=== PATIENT | female | born 1955 | race Caucasian/White ===

== ENCOUNTER 2024-05-18 11:38 | Emergency (ER) | payer MEDICARE, OTHER, SELFPAY ==
--- NOTE | 2024-05-18 11:48 | ED_ITS ---
HPI - General Adult General Chief complaint: Extremity Injury, Upper Stated complaint: Right Hand Finger Irritation Time Seen by Provider: 05/18/24 11:53 Source: patient, RN notes reviewed and old records reviewed Mode of arrival: ambulatory Limitations: no limitations History of Present Illness HPI narrative: 68-year-old female presents to the [facility] with inflammation and redness to the base of the nail right hand 3rd finger. Has a history of paronychia is. Does have fluctuance. Related Data Home Medications Medication Instructions Recorded Confirmed albuterol sulfate 90 mcg/actuation 1 inh inhalation DIRECTED 05/18/24 05/18/24 aerosol inhaler alendronate 70 mg tablet 70 mg PO DIRECTED 05/18/24 05/18/24 azelastine 137 mcg (0.1 %) nasal 137 mcg intranasal DIRECTED 05/18/24 05/18/24 spray cetirizine 10 mg tablet 10 mg DIRECTED 05/18/24 05/18/24 famotidine 40 mg tablet 40 mg DIRECTED 05/18/24 05/18/24 fluticasone propionate 50 1 spray intranasal DIRECTED 05/18/24 05/18/24 mcg/actuation nasal spray,suspension leflunomide 20 mg tablet 20 mg DIRECTED 05/18/24 05/18/24 montelukast 10 mg tablet 10 mg DIRECTED 05/18/24 05/18/24 olmesartan 40 mg tablet 40 mg DIRECTED 05/18/24 05/18/24 pantoprazole 40 mg tablet,delayed 40 mg PO DIRECTED 05/18/24 05/18/24 release roflumilast 500 mcg tablet 500 mcg DIRECTED 05/18/24 05/18/24 tramadol 50 mg tablet 50 mg DIRECTED 05/18/24 05/18/24 upadacitinib 15 mg tablet,extended 15 mg PO DAILY 05/18/24 05/18/24 release 24 hr (Rinvoq) Allergies Allergy/AdvReac Type Severity Reaction Status Date / Time No Known Allergies Allergy Verified 05/18/24 11:58 Review of Systems Review of Systems: All systems reviewed & are unremarkable except as noted in HPI and below Constitutional: Constitutional: Reports no additional constitutional complaints ENT: Reports system reviewed and no additional complaints, except as doc umented Cardiovascular: Cardiovascular: Reports no additional cardiovascular complaints, Denies chest pain and Denies dyspnea Respiratory: Respiratory: Reports no additional respiratory complaints, Denies chest congestion, Denies cough and Denies dyspnea Gastrointestinal: Gastrointestinal: Reports no additional gastrointestinal complaints, Denies abdominal pain, Denies nausea and Denies vomiting Musculoskeletal: Musculoskeletal: Reports no additional musculoskeletal complaints Integumentary/Breasts: Skin/Breast: Reports system reviewed and no additional complaints, except as docu PMFSH Comments At the time of my signature, I reviewed and agree with the nursing past medical, surgical, social, and family history. There is no relevant family history pertinent to the patient complaint. Exam Const: General: cooperative, healthy appearing, comfortable, no acute distress, well developed, alert and well nourished Nutritional Appearance: well nourished Orientation/consciousness: patient oriented x3 Limitations: no limitations HENMT: Head: normal to inspection Ears: hearing grossly normal bilaterally and external ears normal Face/Nose/Sinus: Normal external nose present, normal facial exam and face symmetric Face and sinus: normal facial exam and face symmetric Eyes: General: appearance normal, both eyes and all related structures Alignment and Position: alignment normal Periorbital: periorbital findings normal Neck: Neck: normal visual inspection, full ROM, no lymphadenopathy and no meningeal signs Chest: Chest palpation & inspection: normal inspection of the chest Resp: Effort & Inspection: normal respiratory effort and able to speak in complete sentences Auscultation: clear to auscultation bilaterally, no crackles, no rales, no rhonchi and no wheezes Cardio: Rate: regular rate Skin: General skin exam: normal color and no rashes or lesions noted Lesions: no lesions Rashes: no rashes Wounds: no wounds Neuro: General: patient oriented x3, gait normal, tone normal, moves all extr emities and no meningeal signs Cognition (Neuro): normal cognition Speech: normal speech Gait exam (Neuro): Normal gait present Extrem: General: normal to inspection, full ROM, capillary refill normal and normal gait Psych: Appearance: grossly normal and well kempt Mental Status: mental status grossly normal Speech and movement: Normal speech and movement present and Clear speech present Affect: normal affect Attitude: cooperative Course Course Level of Care: Express Care Visit Vital Signs Vital signs: Vital Signs Temperature 98.4 F 05/18/24 11:51 Pulse Rate 69 05/18/24 11:51 Respiratory Rate 16 05/18/24 11:51 Blood Pressure 143/59 H 05/18/24 11:51 Pulse Oximetry 100 05/18/24 11:51 Oxygen Delivery Room Air 05/18/24 11:51 Temperature 98.4 F 05/18/24 11:51 Pulse Rate 69 05/18/24 11:51 Respiratory Rate 16 05/18/24 11:51 Blood Pressure 143/59 H 05/18/24 11:51 Pulse Oximetry 100 05/18/24 11:51 Oxygen Delivery Room Air 05/18/24 11:51 Reviewed Procedures Abscess I/D hand: Date of Incision: 05/18/24 Time of Incision: 12:27 Side (if applicable): right (Third finger) Local Anesthetic: lidocaine 1% Amount of anesthesia used (mL): 2 Technique: incised with #11 blade Amount of fluid expressed (mL): 1 Irrigation: No Medical Decision Making MDM Narrative Medical decision making narrative: Patient sitting comfortably in exam room. Nontoxic, vitals stable. Patient in no acute distress Patient presents for Discharge instructions reviewed with patient, as well as provided in writing per nursing staff. The instructions also include specific and strict return/GO TO THE ER as well as f/u information. All questions have been answered, and the patient deny any further questions with discharge and discharge plan. Some parts of this dictation were generated by voice recognition software and may contain typographical and/or grammatical inaccuracies. Medical Records Medical records reviewed: Yes I reviewed the external patient's medical records. Vital Signs Vital Signs: Vital Signs Temperature 98.4 F 05/18/24 11:51 Pulse Rate 69 05/18/24 11:51 Respiratory Rate 16 05/18/24 11:51 Blood Pressure 143/59 H 05/18/24 11:51 Pulse Oximetry 100 05/18/24 11:51 Oxygen Delivery Room Air 05/18/24 11:51 Temperature 98.4 F 05/18/24 11:51 Pulse Rate 69 05/18/24 11:51 Respiratory Rate 16 05/18/24 11:51 Blood Pressure 143/59 H 05/18/24 11:51 Pulse Oximetry 100 05/18/24 11:51 Oxygen Delivery Room Air 05/18/24 11:51 Reviewed Lab Data Lab results reviewed: Yes I reviewed the patient's lab results. Labs: Reviewed Critical Care Time Critical Care Time Critical Care Time: No Discharge Plan Discharge Clinical Impression: Paronychia Patient Disposition: Home, Self-Care Condition: Stable Instructions: Antibiotic Form, Paronychia (ED) Additional Instructions: Soak your finger for 15-20 minutes twice daily in warm soapy water and Epson salt Follow-up with primary care provider Today your blood pressure was 143/59 New or worsening symptoms go directly to the emergency room Patient Language: Lithuanian Prescriptions: New cephalexin 500 mg capsule 500 mg PO Q8H 7 Days Qty: 21 0RF No Action cetirizine 10 mg tablet 10 mg DIRECTED famotidine 40 mg tablet 40 mg DIRECTED alendronate 70 mg tablet 70 mg PO DIRECTED leflunomide 20 mg tablet 20 mg DIRECTED tramadol 50 mg tablet 50 mg DIRECTED pantoprazole 40 mg tablet,delayed release (DR/EC) 40 mg PO DIRECTED montelukast 10 mg tablet 10 mg DIRECTED azelastine 137 mcg (0.1 %) spray,non-aerosol 137 mcg INTRANASAL DIRECTED albuterol sulfate 90 mcg/actuation HFA aerosol inhaler 1 inh INHALATION DIRECTED fluticasone propionate 50 mcg/actuation spray,suspension 1 spray INTRANASAL DIRECTED olmesartan 40 mg tablet 40 mg DIRECTED roflumilast 500 mcg tablet 500 mcg DIRECTED Rinvoq 15 mg Tablet Extended Release 24 Hr 15 mg PO DAILY Follow-up/Referrals: Zay,MISAEL Vidales [Primary Care Provider] - 2 Weeks ([facility] care follow up ) Stand Alone Forms: Work/School Release IP Time of Disposition: 12:41
[2024-05-18 11:51] VITALS: BP 143/59; PULSE 69; RESP 16; TEMP 36.9; O2SAT 100
[2024-05-18] MEDS: LIDOCAINE HCL 1% LOCAL INJ 2 ML AMPUL 4 ML INFILTRATE (12:10)
== END 2024-05-18 12:46 | disposition home or self-care (01) ==
PROVIDERS: Emergency Provider Nurse Practitioner; PCP Physician Assistant Medical
DX: L03.011 Cellulitis of right finger (principal); I10 Essential (primary) hypertension; K21.9 Gastro-esophageal reflux disease without esophagitis; Z90.711 Acquired absence of uterus with remaining cervical stump
CPT/HCPCS: 10060; 87070; 87075; 87186; 87205; 99213; G0463; J2003